=== PATIENT | female | born 1955 | race Caucasian/White ===

== ENCOUNTER 2017-04-14 15:32 | Inpatient (IN) | payer OTHER ==
[~2017-04-14] VITALS: Ht 160 cm; Wt 131.6 kg
[~2017-04-14 15:32] MED LIST: ALLO300T PO; ASCO10007 PO; CHOL10003 PO; GABA300C10 PO; LACT1CAP37 PO; LEVO25TA4 PO; LISI40TA PO; SERT25TA3 PO; VITA100020 PO; VITA1TAB3 PO; ginko biloba PO
[2017-04-14] MEDS ORDERED: SODIUM CHLORIDE FLUSH 10ML SYR IVF ONE (16:00)
[2017-04-14] MEDS ORDERED: ONDANSETRON 2MG/ML, 2ML IVPush ONE (16:00)
[2017-04-14] MEDS ORDERED: MORPHINE SULFATE 4 MG/ML, 1ML IVPush PRN (16:00)
[2017-04-14 16:41] LABS: BLOOD UREA NITROGEN 37 mg/dL (7-18)
[2017-04-14 16:45] LABS: IS PT STATUS REG ER OR PRE ER? YES
[2017-04-14] MEDS ORDERED: ENALAPRILAT 1.25 MG/ML, 2ML IVPush PRN (19:00)
[2017-04-14] MEDS ORDERED: LEVO50TA5 PO (19:35)
[2017-04-14] MEDS ORDERED: SERT50TA5 PO (19:40)
[2017-04-14] MEDS ORDERED: LISI-167 PO (19:41)
[2017-04-14 20:50] VITALS: BP 165/85
[2017-04-14] MEDS: SODIUM CHLORIDE 0.9% 1,000 ML IV SCH (21:01)
[2017-04-14] MEDS: HEPARIN 5,000 UNITS/ML, 1ML SQ SCH (22:14)
[2017-04-14 22:23] VITALS: BP 165/85
[2017-04-14 22:55] LABS: IS PT STATUS REG ER OR PRE ER? NO
[2017-04-15 01:00] VITALS: BP 156/76
[2017-04-15] MEDS: SODIUM CHLORIDE 0.9% 1,000 ML IV SCH ×3 (02:46→18:10)
[2017-04-15 05:18] LABS: BLOOD UREA NITROGEN 34 mg/dL (7-18)
[2017-04-15 05:25] LABS: IS PT STATUS REG ER OR PRE ER? NO
[2017-04-15] MEDS ORDERED: LEVOTHYROXINE 25 MCG TABLET PO SCH (06:00)
[2017-04-15 08:15] VITALS: BP 143/85
[2017-04-15] MEDS ORDERED: LISINOPRIL 20 MG TABLET PO SCH (09:00)
[2017-04-15] MEDS: HEPARIN 5,000 UNITS/ML, 1ML SQ SCH ×2 (09:11→18:10)
[2017-04-15] MEDS: ALLOPURINOL 300 MG TABLET PO SCH (09:11)
[2017-04-15] MEDS: SERTRALINE 50MG TABLET PO SCH (09:12)
[2017-04-15] MEDS: LACTOBACILLUS CHEW TABLET PO SCH (09:12)
[2017-04-15] MEDS: ACETAMINOPHEN 325 MG TABLET PO PRN ×2 (09:12→20:54)
[2017-04-15] MEDS: TEMPLATE NON-FORMULARY MED. (Vitamin B Complex** 1 TAB) PO SCH (09:12)
[2017-04-15] MEDS: CHOLECALCIFEROL 1,000 UNIT TABLET PO SCH (09:12)
[2017-04-15 13:47] VITALS: BP 116/77
[2017-04-15 14:04] VITALS: BP 146/75
[2017-04-15 14:56] LABS: ASPARTATE AMINO TRANSFERASE 22 U/L (15-37)
[2017-04-15] MEDS: ASPIRIN 81 MG TABLET EC PO SCH (18:10)
[2017-04-15 19:38] VITALS: BP 151/75
[2017-04-15] MEDS: LISINOPRIL 20 MG TABLET PO SCH (20:48)
[2017-04-15] MEDS ORDERED: ATORVASTATIN 20 MG TABLET PO SCH (21:00)
[2017-04-16 01:20] VITALS: BP 154/63
[2017-04-16] MEDS: HEPARIN 5,000 UNITS/ML, 1ML SQ SCH ×2 (01:32→08:53)
[2017-04-16] MEDS: SODIUM CHLORIDE 0.9% 1,000 ML IV SCH ×2 (02:27→10:46)
[2017-04-16] MEDS: ASPIRIN 81 MG TABLET EC PO SCH (05:14)
[2017-04-16] MEDS ORDERED: LEVOTHYROXINE 25 MCG TABLET PO SCH (06:00)
[2017-04-16 07:29] LABS: BLOOD UREA NITROGEN 32 mg/dL (7-18)
[2017-04-16 08:21] VITALS: BP 138/78
[2017-04-16] MEDS: ALLOPURINOL 300 MG TABLET PO SCH (08:51)
[2017-04-16] MEDS: LACTOBACILLUS CHEW TABLET PO SCH (08:51)
[2017-04-16] MEDS: CHOLECALCIFEROL 1,000 UNIT TABLET PO SCH (08:52)
[2017-04-16] MEDS: SERTRALINE 50MG TABLET PO SCH (08:52)
[2017-04-16] MEDS: LISINOPRIL 20 MG TABLET PO SCH (08:53)
[2017-04-16] MEDS: TEMPLATE NON-FORMULARY MED. (Vitamin B Complex** 1 TAB) PO SCH (08:54)
[2017-04-16] MEDS ORDERED: OMEGA-3/FISH OIL CAPSULE PO SCH (09:00)
[2017-04-16] MEDS ORDERED: LISI-167 PO (11:40)
[2017-04-16] MEDS ORDERED: LEVO50TA5 PO (11:40)
[2017-04-16] MEDS ORDERED: OMEG1CAP6 PO (11:40)
[2017-04-16] MEDS ORDERED: ASPI-621 PO (11:40)
== END 2017-04-16 14:23 | disposition home or self-care (01) | DRG 91 ==
LOC: ED 16:36 → EDIP 16:37 → ED 17:21 → 5SO 20:35 → DCLOUNGE 04-16 13:24
PROVIDERS: ADMIT Internal Medicine; ATTEND Internal Medicine
DX: R47.81 Slurred speech (principal); N17.0 Acute kidney failure with tubular necrosis; Z68.43 Body mass index [BMI] 50.0-59.9, adult; I13.10 Hypertensive heart and chronic kidney disease without heart failure, with stage 1 through stage 4 chronic kidney disease, or unspecified chronic kidney disease; G47.30 Sleep apnea, unspecified; E66.01 Morbid (severe) obesity due to excess calories; E78.5 Hyperlipidemia, unspecified; E11.40 Type 2 diabetes mellitus with diabetic neuropathy, unspecified; E11.22 Type 2 diabetes mellitus with diabetic chronic kidney disease; M10.9 Gout, unspecified; N18.9 Chronic kidney disease, unspecified; Z80.0 Family history of malignant neoplasm of digestive organs; Z80.1 Family history of malignant neoplasm of trachea, bronchus and lung; Z83.3 Family history of diabetes mellitus; Z90.710 Acquired absence of both cervix and uterus; Z85.828 Personal history of other malignant neoplasm of skin; E11.21 Type 2 diabetes mellitus with diabetic nephropathy; E03.9 Hypothyroidism, unspecified; M19.90 Unspecified osteoarthritis, unspecified site; Z84.89 Family history of other specified conditions; I51.89 Other ill-defined heart diseases; Z86.73 Personal history of transient ischemic attack (TIA), and cerebral infarction without residual deficits
CPT/HCPCS: 36415; 70450; 70551; 71010; 76700; 80048; 80061; 80076; 81001; 82040; 83036; 83735; 84439; 84443; 84484; 85025; 85610; 93005; 93306; 93880; 99285; J1644; J7030

== ENCOUNTER → 2017-05-27 | Outpatient (CLI) | payer OTHER ==
[~2017-05-27] MED LIST changes: +ASPI-621 PO; +LEVO50TA5 PO; +LISI-167 PO; +OMEG1CAP6 PO; +SERT50TA5 PO
== END | disposition home or self-care (01) ==
LOC: CFH 11:00
PROVIDERS: ATTEND Family Medicine
DX: M47.897 Other spondylosis, lumbosacral region (principal); S33.39XA Dislocation of other parts of lumbar spine and pelvis, initial encounter; M48.07 Spinal stenosis, lumbosacral region; X58.XXXA Exposure to other specified factors, initial encounter; Y93.89 Activity, other specified; Y92.89 Other specified places as the place of occurrence of the external cause; Y99.8 Other external cause status
CPT/HCPCS: 72100

== ENCOUNTER 2017-06-04 11:21 | Emergency (ER) | payer OTHER ==
[~2017-06-04] VITALS: Ht 160 cm; Wt 122.4 kg
[2017-06-04] MEDS ORDERED: SODIUM CHLORIDE 0.9% 1,000 ML IV ONE (11:48)
[2017-06-04] MEDS ORDERED: MORPHINE SULFATE 4 MG/ML, 1ML IVPush PRN (12:00)
[2017-06-04] MEDS ORDERED: SODIUM CHLORIDE FLUSH 10ML SYR IVF ONE (12:00)
[2017-06-04] MEDS ORDERED: ONDANSETRON 2MG/ML, 2ML IVPush ONE (12:00)
[2017-06-04] MEDS ORDERED: MORPHINE SULFATE 4 MG/ML, 1ML ONE (12:16)
[2017-06-04] MEDS ORDERED: ONDANSETRON 2MG/ML, 2ML ONE (12:16)
[2017-06-04 12:23] LABS: ASPARTATE AMINO TRANSFERASE 12 U/L (15-37); BLOOD UREA NITROGEN 43 mg/dL (7-18)
[2017-06-04 14:00] VITALS: BP 148/71
== END 2017-06-04 14:36 | disposition home or self-care (01) ==
LOC: ED 13:49
DX: K57.32 Diverticulitis of large intestine without perforation or abscess without bleeding (principal); R10.13 Epigastric pain; R10.32 Left lower quadrant pain; I10 Essential (primary) hypertension; E11.21 Type 2 diabetes mellitus with diabetic nephropathy; Z88.2 Allergy status to sulfonamides
CPT/HCPCS: 36415; 74176; 80053; 81001; 83690; 85025; 87086; 96361; 96374; 96375; J2405; J7030

== ENCOUNTER 2017-06-18 09:10 | Inpatient (IN) | payer OTHER ==
[~2017-06-18] VITALS: Ht 160 cm; Wt 127.4 kg
[2017-06-18] MEDS ORDERED: ONDANSETRON 2MG/ML, 2ML IVPush ONE (10:30)
[2017-06-18] MEDS ORDERED: SODIUM CHLORIDE FLUSH 10ML SYR IVF ONE (10:30)
[2017-06-18 11:07] LABS: BLOOD UREA NITROGEN 42 mg/dL (7-18)
[2017-06-18 11:32] LABS: HEMATOCRIT 36.6 % (34.6-47.8); WHITE BLOOD COUNT 8.2 x10^3/uL (3.4-10)
[2017-06-18] MEDS ORDERED: HYDROmorphone 1 MG/ML, 1ML ONE ×2 (12:01→13:44)
[2017-06-18] MEDS ORDERED: ONDANSETRON 2MG/ML, 2ML ONE (12:01)
[2017-06-18] MEDS: HYDROmorphone 1 MG/ML, 1ML IVPush PRN ×2 (12:16→13:56)
[2017-06-18] MEDS ORDERED: LABETALOL 5MG/ML, 20ML IVPush PRN (15:00)
[2017-06-18] MEDS ORDERED: POLYETHYLENE GLYCOL 17 GM PACKET PO PRN (15:00)
[2017-06-18] MEDS ORDERED: ACETAMINOPHEN 325 MG TABLET PO PRN (15:00)
[2017-06-18] MEDS ORDERED: morphine SULFATE 10 MG/ML, 1ML IVPush PRN (15:00)
[2017-06-18] MEDS ORDERED: BISACODYL 10 MG SUPP PR PRN (15:00)
[2017-06-18] MEDS ORDERED: KETOROLAC 30 MG/1 ML IVPush PRN (15:00)
[2017-06-18] MEDS ORDERED: DIAZEPAM 5 MG/ML, 10ML VIAL IV PRN (15:00)
[2017-06-18] MEDS ORDERED: DOCUSATE 100 MG CAPSULE PO PRN (15:00)
[2017-06-18 17:45] VITALS: BP 126/73
[2017-06-18 18:45] VITALS: BP 121/81
[2017-06-18] MEDS ORDERED: LISINOPRIL 10 MG TABLET PO SCH (21:00)
[2017-06-18] MEDS: HEPARIN 5,000 UNITS/ML, 1ML SQ SCH (21:36)
[2017-06-19] MEDS: SODIUM CHLORIDE 0.9% 1,000 ML IV SCH ×2 (00:43→11:43)
[2017-06-19] MEDS: HYDROcodone/APAP 5/325 TABLET PO PRN ×4 (00:43→21:23)
[2017-06-19 01:20] VITALS: BP 138/82
[2017-06-19] MEDS ORDERED: DIAZEPAM 5 MG/ML, 2ML IV PRN (01:30)
[2017-06-19 06:37] LABS: HEMATOCRIT 32.6 % (34.6-47.8); HEMOGLOBIN 10.7 g/dL (11.7-16.4); WHITE BLOOD COUNT 7.7 x10^3/uL (3.4-10)
[2017-06-19] MEDS: HEPARIN 5,000 UNITS/ML, 1ML SQ SCH ×3 (06:38→21:22)
[2017-06-19 06:43] LABS: BLOOD UREA NITROGEN 46 mg/dL (7-18)
[2017-06-19 06:58] VITALS: BP 123/61
[2017-06-19] MEDS: OMEGA-3/FISH OIL CAPSULE PO SCH (08:09)
[2017-06-19] MEDS: SERTRALINE 50MG TABLET PO SCH (08:09)
[2017-06-19] MEDS: CHOLECALCIFEROL 1,000 UNIT TABLET PO SCH (08:09)
[2017-06-19] MEDS: ALLOPURINOL 100 MG TABLET PO SCH (08:10)
[2017-06-19 12:49] VITALS: BP 134/65
[2017-06-19] MEDS: ASPIRIN 81 MG TABLET EC PO SCH (12:54)
[2017-06-19 20:55] VITALS: BP 185/74
[2017-06-19] MEDS: ONDANSETRON 2MG/ML, 2ML IVPush PRN (21:40)
[2017-06-19 22:40] VITALS: BP 112/69
[2017-06-19 23:23] LABS: PATH.CAST-FLAG NOT PRESENT; SPERM-FLAG NOT PRESENT; SRC-FLAG NOT PRESENT; XTAL-FLAG NOT PRESENT; YLC-FLAG NOT PRESENT
[2017-06-19 23:28] LABS: POTASSIUM,URINE RANDOM 24 mmol/L
[2017-06-20] MEDS ORDERED: DIPHENHYDRAMINE 50 MG/ML, 1ML ONE (00:54)
[2017-06-20] MEDS ORDERED: DIPHENHYDRAMINE 50 MG/ML, 1ML IVPush ONE (01:00)
[2017-06-20 02:16] VITALS: BP 169/83
[2017-06-20 02:32] LABS: BLOOD UREA NITROGEN 45 mg/dL (7-18)
[2017-06-20] MEDS ORDERED: PROMETHAZINE 25 MG/ML, 1ML IM ONE (03:00)
[2017-06-20] MEDS: ASPIRIN 81 MG TABLET EC PO SCH (05:51)
[2017-06-20] MEDS: HEPARIN 5,000 UNITS/ML, 1ML SQ SCH ×2 (05:52→22:48)
[2017-06-20] MEDS ORDERED: DEXTROSE 50%, 50ML SYRINGE IVPush ONE (07:00)
[2017-06-20] MEDS ORDERED: SODIUM CHLORIDE 0.9% 1,000 ML IV SCH (07:00)
[2017-06-20] MEDS ORDERED: INSULIN REGULAR 100 UNITS/ML, 3ML VIAL IVPush ONE (07:00)
[2017-06-20] MEDS: LEVOTHYROXINE 75 MCG TABLET PO SCH (09:00)
[2017-06-20] MEDS: ALLOPURINOL 100 MG TABLET PO SCH (09:00)
[2017-06-20] MEDS: OMEGA-3/FISH OIL CAPSULE PO SCH (09:00)
[2017-06-20] MEDS: CHOLECALCIFEROL 1,000 UNIT TABLET PO SCH (09:00)
[2017-06-20] MEDS: SERTRALINE 50MG TABLET PO SCH (09:00)
[2017-06-20 10:00] VITALS: BP 133/73
[2017-06-20] MEDS ORDERED: FUROSEMIDE 40 MG/4 ML IV ONE (10:30)
[2017-06-20] MEDS: CEFTRIAXONE PMX 1GM/50ML 50 ML IV SCH (10:53)
[2017-06-20] MEDS: ONDANSETRON 2MG/ML, 2ML IVPush PRN (10:53)
[2017-06-20] MEDS: SODIUM ACETATE 75 MEQ in SODIUM CHLORIDE 0.45% 1,000 ML IV SCH ×2 (10:54→20:25)
[2017-06-20 14:30] VITALS: BP 129/76
[2017-06-20] MEDS ORDERED: HEPARIN 5,000 UNITS/ML, 1ML SQ ONE (15:00)
[2017-06-20 20:05] VITALS: BP 154/80
[2017-06-21 02:28] VITALS: BP 163/84
[2017-06-21] MEDS: SODIUM ACETATE 75 MEQ in SODIUM CHLORIDE 0.45% 1,000 ML IV SCH (04:30)
[2017-06-21] MEDS: HEPARIN 5,000 UNITS/ML, 1ML SQ SCH ×3 (06:35→22:19)
[2017-06-21] MEDS: ASPIRIN 81 MG TABLET EC PO SCH (06:35)
[2017-06-21 07:20] LABS: HEMATOCRIT 33.5 % (34.6-47.8); HEMOGLOBIN 11.1 g/dL (11.7-16.4); WHITE BLOOD COUNT 7.6 x10^3/uL (3.4-10)
[2017-06-21 07:24] LABS: BLOOD UREA NITROGEN 38 mg/dL (7-18)
[2017-06-21 08:31] VITALS: BP 175/90
[2017-06-21] MEDS ORDERED: SODIUM CHLORIDE 0.45% 1,000 ML IV SCH ×2 (09:30→19:30)
[2017-06-21] MEDS: CEFTRIAXONE PMX 1GM/50ML 50 ML IV SCH (09:34)
[2017-06-21] MEDS: ALLOPURINOL 100 MG TABLET PO SCH (09:35)
[2017-06-21] MEDS: SERTRALINE 50MG TABLET PO SCH (09:35)
[2017-06-21] MEDS: CHOLECALCIFEROL 1,000 UNIT TABLET PO SCH (09:35)
[2017-06-21] MEDS: OMEGA-3/FISH OIL CAPSULE PO SCH (09:35)
[2017-06-21 09:44] VITALS: BP 143/66
[2017-06-21 13:14] VITALS: BP 145/77
[2017-06-21] MEDS ORDERED: DOCUSATE 100 MG CAPSULE ONE (18:25)
[2017-06-21 18:50] VITALS: BP 157/84
[2017-06-21] MEDS ORDERED: BISACODYL 10 MG SUPP PR PRN (19:30)
[2017-06-21] MEDS ORDERED: LABETALOL 5MG/ML, 20ML IVPush PRN (19:30)
[2017-06-21] MEDS ORDERED: ACETAMINOPHEN 325 MG TABLET PO PRN (19:30)
[2017-06-21] MEDS ORDERED: morphine SULFATE 10 MG/ML, 1ML IVPush PRN (19:30)
[2017-06-21] MEDS ORDERED: DIAZEPAM 5 MG/ML, 2ML IV PRN (19:30)
[2017-06-22 00:49] VITALS: BP 133/82
[2017-06-22] MEDS: ASPIRIN 81 MG TABLET EC PO SCH (05:23)
[2017-06-22] MEDS: HEPARIN 5,000 UNITS/ML, 1ML SQ SCH ×2 (05:23→14:00)
[2017-06-22 05:52] LABS: BLOOD UREA NITROGEN 36 mg/dL (7-18)
[2017-06-22] MEDS: OMEGA-3/FISH OIL CAPSULE PO SCH (08:47)
[2017-06-22] MEDS: SERTRALINE 50MG TABLET PO SCH (08:47)
[2017-06-22] MEDS: CHOLECALCIFEROL 1,000 UNIT TABLET PO SCH (08:47)
[2017-06-22] MEDS: ALLOPURINOL 100 MG TABLET PO SCH (08:47)
[2017-06-22] MEDS: LEVOTHYROXINE 75 MCG TABLET PO SCH (08:47)
[2017-06-22] MEDS: CEFTRIAXONE PMX 1GM/50ML 50 ML IV SCH (08:52)
[2017-06-22 09:27] VITALS: BP 158/88
[2017-06-22] MEDS ORDERED: PNEUMOCOCCAL 23 VACCINE IM-VACC ONE (13:30)
== END 2017-06-22 14:39 | disposition home or self-care (01) | DRG 683 ==
LOC: ED 12:37 → EDIP 14:26 → 4NOR 17:13 → 4WST 06-20 09:05 → DCLOUNGE 06-22 14:25
PROVIDERS: ADMIT Internal Medicine; ATTEND Internal Medicine
DX: N17.9 Acute kidney failure, unspecified (principal); E44.0 Moderate protein-calorie malnutrition; E87.2 Acidosis; N39.0 Urinary tract infection, site not specified; Z68.42 Body mass index [BMI] 45.0-49.9, adult; M79.1 Myalgia; E03.9 Hypothyroidism, unspecified; I13.10 Hypertensive heart and chronic kidney disease without heart failure, with stage 1 through stage 4 chronic kidney disease, or unspecified chronic kidney disease; E11.21 Type 2 diabetes mellitus with diabetic nephropathy; E11.22 Type 2 diabetes mellitus with diabetic chronic kidney disease; E11.40 Type 2 diabetes mellitus with diabetic neuropathy, unspecified; N18.3 Chronic kidney disease, stage 3 (moderate); E66.01 Morbid (severe) obesity due to excess calories; E87.5 Hyperkalemia; G47.33 Obstructive sleep apnea (adult) (pediatric); H26.9 Unspecified cataract; G89.29 Other chronic pain; M10.9 Gout, unspecified; M19.90 Unspecified osteoarthritis, unspecified site; B02.9 Zoster without complications; N26.1 Atrophy of kidney (terminal); Z83.3 Family history of diabetes mellitus; Z90.49 Acquired absence of other specified parts of digestive tract; Z82.0 Family history of epilepsy and other diseases of the nervous system; Z80.9 Family history of malignant neoplasm, unspecified; Z85.828 Personal history of other malignant neoplasm of skin; Z88.2 Allergy status to sulfonamides
CPT/HCPCS: 36415; 70450; 70540; 76770; 80048; 81001; 82040; 82436; 82962; 84132; 84133; 84156; 84300; 85025; 85651; 87086; 90732; 93005; 96374; 96375; 96376; J0696; J1170; J1644; J1815; J1885; J1940; J2405; J2550; J3360; J1200; J7030

== ENCOUNTER → 2017-07-27 | Outpatient (CLI) | payer OTHER ==
[~2017-07-27] MED LIST changes: +ASCO100019 PO; -ASCO10007 PO; +UBID100C41 PO
== END | disposition home or self-care (01) ==
LOC: RAD 13:23
PROVIDERS: ATTEND Physical Medicine & Rehabilitation
DX: M50.223 Other cervical disc displacement at C6-C7 level (principal); M48.02 Spinal stenosis, cervical region; M48.07 Spinal stenosis, lumbosacral region; M51.34 Other intervertebral disc degeneration, thoracic region; M51.26 Other intervertebral disc displacement, lumbar region; M12.88 Other specific arthropathies, not elsewhere classified, other specified site; M25.78 Osteophyte, vertebrae; N28.1 Cyst of kidney, acquired; M25.552 Pain in left hip; M25.511 Pain in right shoulder; R53.1 Weakness; R20.0 Anesthesia of skin; E11.9 Type 2 diabetes mellitus without complications
CPT/HCPCS: 72141; 72148

== ENCOUNTER 2017-07-28 23:02 | Emergency (ER) | payer OTHER ==
[~2017-07-28] VITALS: Ht 160 cm; Wt 120.0 kg
[~2017-07-28 23:02] MED LIST changes: -UBID100C41 PO
[2017-07-29] MEDS ORDERED: GABA300C10 PO (00:05)
[2017-07-29] MEDS ORDERED: UBID100C41 PO (00:05)
[2017-07-29 00:06] LABS: HEMATOCRIT 33.2 % (34.6-47.8); HEMOGLOBIN 11.1 g/dL (11.7-16.4); WHITE BLOOD COUNT 8.7 x10^3/uL (3.4-10)
[2017-07-29 00:18] LABS: BLOOD UREA NITROGEN 36 mg/dL (7-18)
[2017-07-29 00:21] LABS: ASPARTATE AMINO TRANSFERASE 11 U/L (15-37)
[2017-07-29 00:32] VITALS: BP 131/71
== END 2017-07-29 01:21 | disposition home or self-care (01) ==
LOC: ED 23:59
DX: T20.27XA Burn of second degree of neck, initial encounter (principal); S16.1XXA Strain of muscle, fascia and tendon at neck level, initial encounter; T31.0 Burns involving less than 10% of body surface; I10 Essential (primary) hypertension; E11.21 Type 2 diabetes mellitus with diabetic nephropathy; X08.8XXA Exposure to other specified smoke, fire and flames, initial encounter; Y93.89 Activity, other specified; Y92.89 Other specified places as the place of occurrence of the external cause; Y99.8 Other external cause status
CPT/HCPCS: 36415; 80053; 85025; 99284

== ENCOUNTER 2017-08-25 09:45 | Inpatient (IN) | payer MEDICAID, OTHER ==
[~2017-08-25] VITALS: Ht 157.5 cm; Wt 122.7 kg
[~2017-08-25 09:45] MED LIST changes: +UBID100C41 PO
[2017-08-25] MEDS ORDERED: morphine SULFATE 10 MG/ML, 1ML ONE (10:54)
[2017-08-25 10:55] LABS: HEMATOCRIT 34.1 % (34.6-47.8); HEMOGLOBIN 11.2 g/dL (11.7-16.4); WHITE BLOOD COUNT 5.8 x10^3/uL (3.4-10)
[2017-08-25] MEDS ORDERED: MORPHINE SULFATE 4 MG/ML, 1ML IVPush PRN (11:00)
[2017-08-25] MEDS ORDERED: SODIUM CHLORIDE FLUSH 10ML SYR IVF ONE (11:00)
[2017-08-25 11:06] LABS: ASPARTATE AMINO TRANSFERASE 9 U/L (15-37); BLOOD UREA NITROGEN 28 mg/dL (7-18)
[2017-08-25] MEDS ORDERED: ONDANSETRON ODT 4 MG PO PRN (12:00)
[2017-08-25] MEDS ORDERED: morphine SULFATE 10 MG/ML, 1ML IVPush PRN (12:00)
[2017-08-25] MEDS ORDERED: hydrALAzine 20 MG/ML, 1ML IVPush PRN (12:00)
[2017-08-25] MEDS ORDERED: ONDANSETRON 2MG/ML, 2ML IVPush PRN (12:00)
[2017-08-25] MEDS ORDERED: BISACODYL 10 MG SUPP PR PRN (12:00)
[2017-08-25] MEDS: INSULIN ASPART 100 UNITS/ML, PEN SQ-INSULIN SCH ×3 (12:00→20:33)
[2017-08-25] MEDS ORDERED: ZOLPIDEM 5MG TABLET PO PRN (12:00)
[2017-08-25] MEDS ORDERED: DOCUSATE 100 MG CAPSULE PO PRN (12:00)
[2017-08-25] MEDS ORDERED: POLYETHYLENE GLYCOL 17 GM PACKET PO PRN (12:00)
[2017-08-25 13:20] VITALS: BP 146/80
[2017-08-25 13:38] VITALS: BP 146/80
[2017-08-25] MEDS: HYDROcodone/APAP 5/325 TABLET PO PRN (16:25)
[2017-08-25 19:23] VITALS: BP 138/70
[2017-08-26] MEDS: HYDROcodone/APAP 5/325 TABLET PO PRN ×4 (00:20→23:09)
[2017-08-26 01:09] VITALS: BP 126/73
[2017-08-26] MEDS: LEVOTHYROXINE 75 MCG TABLET PO SCH (04:41)
[2017-08-26 04:56] LABS: HEMATOCRIT 32.7 % (34.6-47.8); HEMOGLOBIN 10.7 g/dL (11.7-16.4); WHITE BLOOD COUNT 6.6 x10^3/uL (3.4-10)
[2017-08-26 05:06] LABS: BLOOD UREA NITROGEN 29 mg/dL (7-18)
[2017-08-26] MEDS: INSULIN ASPART 100 UNITS/ML, PEN SQ-INSULIN SCH ×4 (07:00→19:58)
[2017-08-26] MEDS: SERTRALINE 50MG TABLET PO SCH (08:06)
[2017-08-26] MEDS: MULTIVITS,STRESS FORMULA 1 TABLET PO SCH (08:06)
[2017-08-26] MEDS: LACTOBACILLUS CHEW TABLET PO SCH (08:06)
[2017-08-26] MEDS: OMEGA-3/FISH OIL CAPSULE PO SCH (08:06)
[2017-08-26 09:11] VITALS: BP 142/79
[2017-08-26] MEDS: HEPARIN 5,000 UNITS/ML, 1ML SQ SCH ×2 (12:49→20:40)
[2017-08-26 17:27] VITALS: BP 126/76
[2017-08-26 18:59] VITALS: BP 116/67
[2017-08-27 01:08] VITALS: BP 147/72
[2017-08-27] MEDS: HEPARIN 5,000 UNITS/ML, 1ML SQ SCH ×3 (04:30→22:27)
[2017-08-27] MEDS: LEVOTHYROXINE 75 MCG TABLET PO SCH (05:51)
[2017-08-27 06:06] LABS: HEMATOCRIT 34.9 % (34.6-47.8); HEMOGLOBIN 11.3 g/dL (11.7-16.4); WHITE BLOOD COUNT 6.3 x10^3/uL (3.4-10)
[2017-08-27 06:16] LABS: BLOOD UREA NITROGEN 30 mg/dL (7-18)
[2017-08-27] MEDS: INSULIN ASPART 100 UNITS/ML, PEN SQ-INSULIN SCH ×4 (07:00→20:22)
[2017-08-27 07:40] VITALS: BP 150/89
[2017-08-27] MEDS: MULTIVITS,STRESS FORMULA 1 TABLET PO SCH (07:53)
[2017-08-27] MEDS: OMEGA-3/FISH OIL CAPSULE PO SCH (07:53)
[2017-08-27] MEDS: SERTRALINE 50MG TABLET PO SCH (07:54)
[2017-08-27] MEDS: LACTOBACILLUS CHEW TABLET PO SCH (07:54)
[2017-08-27 16:51] VITALS: BP 168/84
[2017-08-27 19:00] VITALS: BP 168/77
[2017-08-27] MEDS: HYDROcodone/APAP 5/325 TABLET PO PRN (22:26)
[2017-08-28 03:20] VITALS: BP 150/76
[2017-08-28 05:12] LABS: HEMATOCRIT 34.8 % (34.6-47.8); HEMOGLOBIN 11.6 g/dL (11.7-16.4)
[2017-08-28 05:27] LABS: BLOOD UREA NITROGEN 32 mg/dL (7-18)
[2017-08-28] MEDS: LEVOTHYROXINE 75 MCG TABLET PO SCH (06:14)
[2017-08-28] MEDS: HEPARIN 5,000 UNITS/ML, 1ML SQ SCH ×2 (06:14→12:00)
[2017-08-28] MEDS: INSULIN ASPART 100 UNITS/ML, PEN SQ-INSULIN SCH ×2 (07:00→11:00)
[2017-08-28 07:55] VITALS: BP 112/70
[2017-08-28] MEDS: SERTRALINE 50MG TABLET PO SCH (08:23)
[2017-08-28] MEDS: MULTIVITS,STRESS FORMULA 1 TABLET PO SCH (08:23)
[2017-08-28] MEDS: HYDROcodone/APAP 5/325 TABLET PO PRN (08:23)
[2017-08-28] MEDS: LACTOBACILLUS CHEW TABLET PO SCH (08:23)
[2017-08-28] MEDS: OMEGA-3/FISH OIL CAPSULE PO SCH (08:23)
[2017-08-28] MEDS ORDERED: HYDR-3240 PO (12:12)
[2017-08-28] MEDS ORDERED: DOCU-131 PO (12:12)
[2017-08-28 13:05] VITALS: BP 123/73
== END 2017-08-28 15:39 | disposition home health service (06) | DRG 552 ==
LOC: ED 11:10 → INTOOBSV 11:16 → EDIP 11:16 → 4WST 13:35 → OBSVTOIN 08-27 12:24 → DCLOUNGE 08-28 15:15
PROVIDERS: ADMIT Family Medicine; ATTEND Family Medicine
DX: M54.2 Cervicalgia (principal); E11.21 Type 2 diabetes mellitus with diabetic nephropathy; E11.40 Type 2 diabetes mellitus with diabetic neuropathy, unspecified; K51.90 Ulcerative colitis, unspecified, without complications; E66.01 Morbid (severe) obesity due to excess calories; Z68.42 Body mass index [BMI] 45.0-49.9, adult; E03.9 Hypothyroidism, unspecified; E11.22 Type 2 diabetes mellitus with diabetic chronic kidney disease; G47.33 Obstructive sleep apnea (adult) (pediatric); G89.29 Other chronic pain; H26.9 Unspecified cataract; I13.10 Hypertensive heart and chronic kidney disease without heart failure, with stage 1 through stage 4 chronic kidney disease, or unspecified chronic kidney disease; M10.9 Gout, unspecified; M19.90 Unspecified osteoarthritis, unspecified site; N18.9 Chronic kidney disease, unspecified; Z83.3 Family history of diabetes mellitus; Z85.828 Personal history of other malignant neoplasm of skin; Z86.73 Personal history of transient ischemic attack (TIA), and cerebral infarction without residual deficits; Z90.710 Acquired absence of both cervix and uterus
CPT/HCPCS: 36415; 71020; 80048; 80053; 82962; 83735; 83880; 84100; 84439; 84443; 85025; 93306; 93970; 96374; G0378; J1644

== ENCOUNTER → 2021-01-08 | Outpatient (CLI) | payer MEDICARE ==
[~2021-01-08] MED LIST changes: +ALLO100T30 PO; -ASPI-621 PO; +ASPI81TA45 PO; +CARV6.252 PO; +CINA30TA2 PO; +CIPR250T2 PO; +CIPR500T87 PO; +COLE1TAB2 PO; +DOCU-131 PO; +ERGO500017 PO; +FURO20TA3 PO; +HYDR-1067 PO; +L GLUTAMINE PO; +LEVO75TA5 PO; +LEVO88TA4 PO; -LISI40TA PO; +LISI40TA9 PO; +LOSA25TA12 PO; +LOSA50TA14 PO; +METR500T PO; +PATI8.4P PO; +SERT-331 PO; -SERT25TA3 PO; +SERT50TA28 PO; -SERT50TA5 PO; +SODI650T PO; +TAMS-11 PO
[2021-01-08 14:24] LABS: BASOPHILS % (AUTO) 1 % (0-1); EOSINOPHILS % (AUTO) 2 % (1-7); LYMPHOCYTES % (AUTO) 29 % (22-44); MEAN CORPUSCULAR HEMOGLOBIN 30.9 pg (27.0-34.8); MEAN CORPUSCULAR HGB CONC 33.4 g/dL (32.4-35.8); MEAN PLATELET VOLUME 8.5 fL (7.4-10.4); MONOCYTES % (AUTO) 7 % (2-9); NEUTROPHILS % (AUTO) 61 % (42-75); PLATELET COUNT 275 x10^3/uL (130-400); RED BLOOD COUNT 4.03 x10^6/uL (3.82-5.3); RED CELL DISTRIBUTION WIDTH 15.5 % (9.6-15.2)
[2021-01-08 14:25] LABS: MD NO
[2021-01-08 14:36] LABS: ALANINE AMINOTRANSFERASE 21 U/L (12-78); ALBUMIN 3.5 g/dL (3.4-5.0); ANION GAP 5 mmol/L (5-15); CALCIUM 10.3 mg/dL (8.5-10.1); CHLORIDE 112 mmol/L (98-107); CREATININE 2.51 mg/dL (0.55-1.02)
[2021-01-08 14:38] LABS: ALKALINE PHOSPHATASE 76 U/L (45-117); BILIRUBIN,TOTAL 0.3 mg/dL (0.2-1.0); TOTAL PROTEIN 6.5 g/dL (6.4-8.2)
== END | disposition home or self-care (01) ==
LOC: STAR 13:03
PROVIDERS: ATTEND Surgery
DX: Z01.812 Encounter for preprocedural laboratory examination (principal); Z20.822 Contact with and (suspected) exposure to COVID-19; N18.9 Chronic kidney disease, unspecified
CPT/HCPCS: 36415; 80053; 85025; 93005; U0003

== ENCOUNTER 2021-01-14 12:29 | Day surgery (SDC) | payer MEDICARE ==
[~2021-01-14] VITALS: Ht 160 cm; Wt 123.6 kg
[2021-01-14 13:18] VITALS: BP 145/88
[2021-01-14] MEDS ORDERED: SODIUM CHLORIDE 0.9% 1,000 ML IV SCH (13:30)
[2021-01-14] MEDS ORDERED: CHLORHEXIDINE 15 ML UDC MM ONE (13:30)
[2021-01-14] MEDS ORDERED: FENTANYL PF 250 MCG/5ML ONE (13:52)
[2021-01-14] MEDS ORDERED: PAPAVERINE 30 MG/ML, 2ML ONE (15:05)
[2021-01-14] MEDS ORDERED: BUPIVACAINE/PF 0.25% ONE (15:05)
[2021-01-14] MEDS ORDERED: PROTAMINE SULFATE 10 MG/ML, 5ML ONE (15:06)
[2021-01-14] MEDS ORDERED: HEPARIN 1,000 UNITS/ML, 10ML ONE (15:06)
[2021-01-14] MEDS ORDERED: DEXAMETHASONE 4 MG/ML, 1ML ONE (15:57)
[2021-01-14] MEDS ORDERED: HALOPERIDOL 5 MG/ML IV PRN (16:00)
[2021-01-14] MEDS ORDERED: HYDROmorphone 1 MG/ML, 1ML INJ IVPush PRN (16:00)
[2021-01-14] MEDS ORDERED: PROMETHAZINE 25 MG/ML, 1ML IVPush PRN (16:00)
[2021-01-14] MEDS ORDERED: ACETAMINOPHEN 325 MG TABLET PO PRN (16:00)
[2021-01-14] MEDS ORDERED: hydrALAzine 20 MG/ML, 1ML IV PRN (16:00)
[2021-01-14] MEDS ORDERED: FENTANYL PF 100 MCG/2ML IV PRN (16:00)
[2021-01-14] MEDS ORDERED: LABETALOL 5MG/ML, 20ML IV PRN (16:00)
[2021-01-14] MEDS ORDERED: OXYcodone 5 MG/5 ML ORAL.SOL UDC PO PRN (16:00)
[2021-01-14] MEDS ORDERED: ONDANSETRON 2MG/ML, 2ML ONE (16:31)
[2021-01-14] MEDS ORDERED: CEFAZOLIN 1,000 MG ONE (16:31)
[2021-01-14] MEDS ORDERED: ALBUTEROL HFA 90 MCG/SPRAY ONE (16:31)
[2021-01-14] MEDS ORDERED: NEOSTIGMINE 1 MG/ML, 10ML ONE (16:31)
[2021-01-14] MEDS ORDERED: GLYCOPYRROLATE 0.2MG/1ML, 5ML ONE (16:31)
[2021-01-14] MEDS ORDERED: PROPOFOL 10 MG/ML, 20ML ONE (16:31)
[2021-01-14] MEDS ORDERED: ROCURONIUM 10MG/ML,5ML ONE (16:31)
[2021-01-14] MEDS ORDERED: SUGAMMADEX 200 MG/2 ML IVPush ONE (16:44)
[2021-01-14] MEDS ORDERED: FENTANYL PF 100 MCG/2ML ONE (17:21)
[2021-01-14] MEDS ORDERED: OXYcodone 5 MG/5 ML ORAL.SOL UDC ONE (17:21)
== END 2021-01-14 20:40 | disposition home or self-care (01) ==
LOC: OUT 12:29
PROVIDERS: ATTEND Surgery
DX: E11.22 Type 2 diabetes mellitus with diabetic chronic kidney disease (principal); I12.0 Hypertensive chronic kidney disease with stage 5 chronic kidney disease or end stage renal disease; N18.6 End stage renal disease; I25.10 Atherosclerotic heart disease of native coronary artery without angina pectoris; I25.2 Old myocardial infarction; M10.9 Gout, unspecified; E03.9 Hypothyroidism, unspecified; E66.01 Morbid (severe) obesity due to excess calories; Z79.890 Hormone replacement therapy; Z79.891 Long term (current) use of opiate analgesic; Z79.899 Other long term (current) drug therapy; Z88.2 Allergy status to sulfonamides; Z88.8 Allergy status to other drugs, medicaments and biological substances; Z90.49 Acquired absence of other specified parts of digestive tract; Z90.710 Acquired absence of both cervix and uterus; Z98.890 Other specified postprocedural states
CPT/HCPCS: 36821; 82962; J0690; J1100; J1644; J2405; J2704; J2710; J3010; J7030; J2720; J2440

== ENCOUNTER 2021-03-16 14:23 | Emergency (ER) | payer MEDICARE ==
[~2021-03-16] VITALS: Ht 160 cm; Wt 128.5 kg
[~2021-03-16 14:23] MED LIST changes: -HYDR-1067 PO; +HYDR-2214 PO
[2021-03-16 14:32] VITALS: BP 141/52
--- NOTE | 2021-03-16 15:12 | NUR ---
CALL CENTER ASSOCIATE: PT TO ROOM FROM LOBBY
--- NOTE | 2021-03-16 15:30 | NUR ---
Dr. Galarza at bedside. Plan of care discussed.
[2021-03-16] MEDS ORDERED: HYDROcodone/APAP 5/325 TABLET PO ONE (16:00)
[2021-03-16] MEDS ORDERED: HYDROcodone/APAP 5/325 TABLET ONE (16:01)
--- NOTE | 2021-03-16 16:05 | NUR ---
Pt medicated, calm and cooperative.
[2021-03-16 16:19] LABS: ANION GAP 5 mmol/L (5-15); CALCIUM 9.7 mg/dL (8.5-10.1); CHLORIDE 111 mmol/L (98-107); CREATININE 2.74 mg/dL (0.55-1.02)
--- NOTE | 2021-03-16 16:48 | NUR ---
PT ASSISTED TO WHEELCHAIR AND THEN TO DISCHARGE WINDOW WHERE SHE CONTACTED DAUGHTER FOR RIDE HOME.
== END 2021-03-16 16:54 | disposition home or self-care (01) ==
LOC: ED 16:48
DX: M25.551 Pain in right hip (principal); M25.561 Pain in right knee; M79.661 Pain in right lower leg; G89.29 Other chronic pain; I12.9 Hypertensive chronic kidney disease with stage 1 through stage 4 chronic kidney disease, or unspecified chronic kidney disease; N18.9 Chronic kidney disease, unspecified; E78.5 Hyperlipidemia, unspecified; E11.22 Type 2 diabetes mellitus with diabetic chronic kidney disease; M19.90 Unspecified osteoarthritis, unspecified site; I25.2 Old myocardial infarction; E03.9 Hypothyroidism, unspecified
CPT/HCPCS: 36415; 80048; 99283

== ENCOUNTER → 2021-05-01 | Day surgery (SDC) | payer MEDICARE ==
[~2021-05-01] VITALS: Ht 160 cm; Wt 126.5 kg
[~2021-05-01] MED LIST changes: +ACETAMINOPHEN 325 MG TABLET PO PRN; +BUPIVACAINE/PF 0.25% ONE; +CHLORHEXIDINE 15 ML UDC ONE; +EPHEDRINE 50 MG/ML, 1ML IVPush PRN; +FENTANYL PF 100 MCG/2ML IV PRN; +HEPARIN 1,000 UNITS/ML, 10ML ONE; +HYDROmorphone 1 MG/ML, 1ML INJ IVPush PRN; +LABETALOL 5MG/ML, 20ML IV PRN; -LACT1CAP37 PO; +LACT1CAP47 PO; +LACTATED RINGERS 1,000 ML IV SCH; +ONDANSETRON 2MG/ML, 2ML IVPush PRN; +OXYcodone 5 MG/5 ML ORAL.SOL UDC PO PRN; +PAPAVERINE 30 MG/ML, 2ML ONE; +PLEASE ENTER HEIGHT AND WEIGHT MC SCH; +PROMETHAZINE 25 MG/ML, 1ML IVPush PRN; +PROTAMINE SULFATE 10 MG/ML, 5ML ONE; +SODIUM CHLORIDE 0.9% 1,000 ML IV SCH; +THROMBIN (RECOMBINANT) 5,000 UNIT VIAL TP ONE; +hydrALAzine 20 MG/ML, 1ML IV PRN
[2021-05-01 15:21] VITALS: BP 167/77
[2021-05-01 16:04] LABS: ALBUMIN 3.3 g/dL (3.4-5.0); ANION GAP 6 mmol/L (5-15); CALCIUM 9.8 mg/dL (8.5-10.1); CHLORIDE 115 mmol/L (98-107)
[2021-05-01 16:07] LABS: INTERNATIONAL NORMALIZED RATIO 0.96 (0.93-1.1); PROTHROMBIN TIME 10.3 Seconds (9.6-11.5)
[2021-05-01 16:09] LABS: ALANINE AMINOTRANSFERASE 18 U/L (12-78); ALKALINE PHOSPHATASE 61 U/L (45-117); BILIRUBIN,TOTAL 0.3 mg/dL (0.2-1.0); CREATININE 2.66 mg/dL (0.55-1.02); TOTAL PROTEIN 6.8 g/dL (6.4-8.2)
[2021-05-01 16:22] LABS: BASOPHILS % (AUTO) 1 % (0-1); EOSINOPHILS % (AUTO) 2 % (1-7); LYMPHOCYTES % (AUTO) 24 % (22-44); MEAN CORPUSCULAR HEMOGLOBIN 30.4 pg (27.0-34.8); MEAN PLATELET VOLUME 8.6 fL (7.4-10.4); MONOCYTES % (AUTO) 6 % (2-9); NEUTROPHILS % (AUTO) 66 % (42-75); PLATELET COUNT 334 x10^3/uL (130-400); RED BLOOD COUNT 3.81 x10^6/uL (3.82-5.3); RED CELL DISTRIBUTION WIDTH 15.4 % (9.6-15.2)
== END | disposition home or self-care (01) ==
LOC: OR 14:53
PROVIDERS: ATTEND Surgery
DX: I12.9 Hypertensive chronic kidney disease with stage 1 through stage 4 chronic kidney disease, or unspecified chronic kidney disease (principal); Z53.8 Procedure and treatment not carried out for other reasons; E11.22 Type 2 diabetes mellitus with diabetic chronic kidney disease; N18.4 Chronic kidney disease, stage 4 (severe); E03.9 Hypothyroidism, unspecified; M10.9 Gout, unspecified; M19.90 Unspecified osteoarthritis, unspecified site; I25.2 Old myocardial infarction; E66.9 Obesity, unspecified; Z99.2 Dependence on renal dialysis; Z88.1 Allergy status to other antibiotic agents; Z88.8 Allergy status to other drugs, medicaments and biological substances; Z88.2 Allergy status to sulfonamides; Z79.899 Other long term (current) drug therapy; Z90.49 Acquired absence of other specified parts of digestive tract; Z90.710 Acquired absence of both cervix and uterus; Z98.890 Other specified postprocedural states; Z68.42 Body mass index [BMI] 45.0-49.9, adult; Z20.822 Contact with and (suspected) exposure to COVID-19
CPT/HCPCS: 36415; 80053; 85025; 85610; 85730; 87635; 93005; J1644; J7030; J2720; J2440

== ENCOUNTER 2021-07-29 12:35 | Outpatient (CLI) | payer MEDICARE ==
[~2021-07-29 12:35] MED LIST changes: -ACETAMINOPHEN 325 MG TABLET PO PRN; -BUPIVACAINE/PF 0.25% ONE; -CHLORHEXIDINE 15 ML UDC ONE; -EPHEDRINE 50 MG/ML, 1ML IVPush PRN; -FENTANYL PF 100 MCG/2ML IV PRN; -HEPARIN 1,000 UNITS/ML, 10ML ONE; -HYDROmorphone 1 MG/ML, 1ML INJ IVPush PRN; -LABETALOL 5MG/ML, 20ML IV PRN; -LACTATED RINGERS 1,000 ML IV SCH; -ONDANSETRON 2MG/ML, 2ML IVPush PRN; -OXYcodone 5 MG/5 ML ORAL.SOL UDC PO PRN; -PAPAVERINE 30 MG/ML, 2ML ONE; -PLEASE ENTER HEIGHT AND WEIGHT MC SCH; -PROMETHAZINE 25 MG/ML, 1ML IVPush PRN; -PROTAMINE SULFATE 10 MG/ML, 5ML ONE; +REGADENOSON 0.4 MG/5 ML SYRINGE ONE; -SODIUM CHLORIDE 0.9% 1,000 ML IV SCH; -THROMBIN (RECOMBINANT) 5,000 UNIT VIAL TP ONE; -hydrALAzine 20 MG/ML, 1ML IV PRN
== END 2021-07-30 23:59 | disposition home or self-care (01) ==
LOC: CFH 12:35
PROVIDERS: ATTEND Internal Medicine Cardiovascular Disease
DX: Z01.810 Encounter for preprocedural cardiovascular examination (principal); I10 Essential (primary) hypertension; R06.02 Shortness of breath
CPT/HCPCS: 78452; 93017; A9502; J2785